=== PATIENT | female | born 1945 | race Caucasian/White ===

== ENCOUNTER 2017-11-17 05:49 | Day surgery (SDC) | payer MEDICARE, OTHER ==
[2017-11-17] MEDS ORDERED: *PACU ONLY* KETAMINE HCL 10 MG/ML (20ML) VIAL IV ONE (05:50)
[2017-11-17] MEDS ORDERED: PROPOFOL 10 MG/ML VIAL IV ONE (05:50)
[2017-11-17] MEDS ORDERED: HYDROCODONE/APAP 5/325MG TABLET PO ONE (05:50)
[2017-11-17] MEDS ORDERED: LIDOCAINE 2% MDV (20MG/ML) 20ML VIAL IV ONE (05:50)
[2017-11-17] MEDS ORDERED: FENTANYL PF 100MCG/2ML VIAL IV ONE (05:50)
[2017-11-17] MEDS ORDERED: KETOROLAC 30 MG/ML VIAL IVP ONE (05:50)
[2017-11-17] MEDS ORDERED: ACETAMINOPHEN 1,000 MG/100 ML BTL IV ONE (06:00)
--- NOTE | 2017-11-17 13:00 | Operative Note ---
DATE OF SURGERY: 11/17/2017 Surgeon: Dimitri Gipson DO Referring physician: Jose Payne DO PREOPERATIVE DIAGNOSIS: Carpal tunnel syndrome of the right wrist. POSTOPERATIVE DIAGNOSIS: Carpal tunnel syndrome of the right wrist. OPERATION: Decompression right median nerve of the wrist using a 3.5 loupe magnification. Anesthesia: General. PROCEDURE: This 72-year-old female was taken to the operating room and placed in the supine position on the operating room table where general anesthesia was induced. The right upper extremity was elevated, prepped with Hibiclens and draped in the usual sterile fashion. It was exsanguinated and the tourniquet inflated to 250 mmHg. A palmar incision was utilized following the hypothenar crease from the level of the base of the web space of the thumb to the flexor crease of the wrist. Dissection was carried down through the skin and subcutaneous tissue. The palmar fascia was divided in line with the skin incision. Puncture incisions were made in the flexor retinaculum. It was then split to its proximal margin. The contents of the carpal tunnel were then under direct vision and the transverse carpal ligament was transected along its ulnar border. The radial flap was raised to expose the entire median nerve under the transverse carpal ligament. The recurrent motor branch of the median nerve was identified and found to be normal. The patient did have some very small superficial vessels (2) overlying the ventral surface of the median nerve. These were not disturbed. The wound was irrigated and the tourniquet was released. Hemostasis obtained with the electrocautery and the wound closed with interrupted 6-0 nylon suture. Sterile dressings were applied with plaster splint immobilization, with the wrist in slight dorsiflexion with the thumb in an adducted position. The patient was then taken to the recovery room in satisfactory condition. GROSS PATHOLOGY: This patient had mild atrophy of the median nerve, two small ventral blood vessels were present on the nerve, but these were not disturbed. [facility]
== END 2017-11-17 08:43 | disposition home or self-care (01) ==
LOC: SUR 05:49
PROVIDERS: ATTEND Orthopaedic Surgery
DX: G56.01 Carpal tunnel syndrome, right upper limb (principal); E11.9 Type 2 diabetes mellitus without complications; Z79.4 Long term (current) use of insulin; I10 Essential (primary) hypertension; E78.00 Pure hypercholesterolemia, unspecified
CPT/HCPCS: 36416; 82948; 64721; 01810; J1885; J3010

== ENCOUNTER 2018-04-06 06:28 | Day surgery (SDC) | payer MEDICARE, OTHER ==
[~2018-04-06 06:28] MED LIST: ACETAMINOPHEN 1,000 MG/100 ML BTL IV ONE
[2018-04-06] MEDS ORDERED: LIDOCAINE 1% MDV (10MG/ML) 20ML VIAL SQ ONE ×2 (06:29)
[2018-04-06] MEDS ORDERED: FENTANYL PF 100MCG/2ML VIAL IV ONE (06:29)
[2018-04-06] MEDS ORDERED: PROPOFOL 10 MG/ML VIAL IV ONE (06:29)
[2018-04-06] MEDS ORDERED: MIDAZOLAM HCL 2MG/2ML VIAL IV ONE (06:29)
--- NOTE | 2018-04-07 12:31 | Operative Note ---
DATE OF SURGERY: 04/06/2018 Surgeon: Dimitri Gipson DO PREOPERATIVE DIAGNOSIS: Trigger finger of the left ring finger. POSTOPERATIVE DIAGNOSIS: Trigger finger of the left ring finger. OPERATION: Tenotomy A1 abilio left ring finger using 3.5 loop magnification. DESCRIPTION OF PROCEDURE: This 72-year-old female was taken to the operating room and placed in the supine position on the operating room table where assisted local anesthesia was induced, and 1% Xylocaine plain was used as a local anesthetic. The left hand was prepped with Hibiclens and draped in the usual sterile fashion. The hand was then exsanguinated and the tourniquet inflated to 250 mmHg. A longitudinal incision was made over the 4th metacarpal head of the left hand in the palmar surface and dissection was carried down through the skin and subcutaneous tissue. Hemostasis obtained with the electrocautery. The proximal edge of the A1 abilio was easily identified. Blunt and sharp dissection was carried down to expose it completely and then it was divided from its proximal to its distal margin under direct vision. Once this had been , the finger was taken through range of motion. The full excursion of the finger was possible without any evidence of impingement. There was a nodularity of the sublimis tendon. The tendon otherwise appeared normal. The wound was copiously irrigated with lactated Ringer's solution and closed with interrupted 6-0 nylon suture. Sterile dressings were applied and patient taken to the recovery area in satisfactory condition. GROSS PATHOLOGY: There is a nodularity to the sublimis tendon to the left ring finger and tenotomy of the A1 abilio was performed as described. CC: Jessica HERNANDEZ
== END 2018-04-06 08:25 | disposition home or self-care (01) ==
LOC: SUR 06:28
PROVIDERS: ATTEND Orthopaedic Surgery
DX: M65.342 Trigger finger, left ring finger (principal); I10 Essential (primary) hypertension; E11.9 Type 2 diabetes mellitus without complications; Z79.4 Long term (current) use of insulin; E78.00 Pure hypercholesterolemia, unspecified; G25.81 Restless legs syndrome; M19.90 Unspecified osteoarthritis, unspecified site

== ENCOUNTER 2018-06-22 05:48 | Day surgery (SDC) | payer MEDICARE, OTHER ==
[2018-06-22] MEDS ORDERED: ACETAMINOPHEN W/ CODEINE 300MG/30MG TABLET PO ONE (05:49)
[2018-06-22] MEDS ORDERED: KETOROLAC 30 MG/ML VIAL IVP ONE (05:49)
[2018-06-22] MEDS ORDERED: LIDOCAINE 2% MDV (20MG/ML) 20ML VIAL IV ONE (05:49)
[2018-06-22] MEDS ORDERED: **ER** KETAMINE HCL 500MG/10ML VIAL IV ONE (05:49)
[2018-06-22] MEDS ORDERED: PROPOFOL 10 MG/ML VIAL IV ONE (05:49)
[2018-06-22] MEDS ORDERED: ACETAMINOPHEN 1,000 MG/100 ML BTL IV ONE (06:00)
--- NOTE | 2018-06-22 14:30 | Operative Note ---
DATE OF SURGERY: 06/22/2018 Surgeon: Dimitri Gipson DO PREOPERATIVE DIAGNOSIS: Tenosynovitis of the extensor tendons of the right hand. POSTOPERATIVE DIAGNOSIS: Tenosynovitis of the extensor tendons of the right hand. OPERATION: Extensor tenosynovectomy of the dorsum of the right hand using 3.5 loop magnification. DESCRIPTION OF PROCEDURE: This 72-year-old female was taken to the operating room and placed in the supine position on the operating room table. General anesthetic was administered. The right upper extremity was elevated. It was prepped with Hibiclens and draped in the usual sterile fashion. It was exsanguinated and the tourniquet inflated to 250 mmHg. A lazy "S" type incision was made over the dorsum of the hand and wrist joint, and we dissected down through the skin and subcutaneous tissue avoiding the neurovascular structures as much as possible. Some coagulation of vessels was encountered. We were able to expose the extensor sheath in the hand and this was opened to the level of the extensor retinaculum. The tendon sheath demonstrated very extensive tenosynovitis which was sharply divided. We could see that this extended into the 3rd dorsal compartment, and this was opened to expose the common extensors. Marked tenosynovitis and some destruction of the extensor tendon was identified there. Tenosynovectomy was performed and we irrigated the tendons but did not further disturb them. The extensor tendon to the communis tendon to the ring finger was the most severely damaged with marked fraying of the tendon being identified. The extensor to the middle finger and index finger were less affected. Once the tenosynovium was removed, the wound was copiously irrigated and the layers closed. The extensor retinaculum (third dorsal compartment) was closed with #2 Vicryl. The subcutaneous tissue was irrigated. The tourniquet was released. Hemostasis obtained with the electrocautery and skin closed with a running 5-0 nylon suture. Sterile dressings were applied and the patient taken to the recovery room in satisfactory condition. GROSS PATHOLOGY: This patient demonstrated extensor tenosynovitis of the extensor tendon that is described above. Specimens were taken and sent to the laboratory for analysis. Partial disruption of the extensor tendons was seen in the 3rd dorsal compartment. CC: Jessica HERNANDEZ
== END 2018-06-22 09:25 | disposition home or self-care (01) ==
LOC: SUR 05:48
PROVIDERS: ATTEND Orthopaedic Surgery
DX: M65.841 Other synovitis and tenosynovitis, right hand (principal); I10 Essential (primary) hypertension; E11.9 Type 2 diabetes mellitus without complications; E78.00 Pure hypercholesterolemia, unspecified; G25.81 Restless legs syndrome; M19.90 Unspecified osteoarthritis, unspecified site; K21.9 Gastro-esophageal reflux disease without esophagitis
CPT/HCPCS: 26145 ×3; 01810; J1885